=== PATIENT | female | born 1995 | race Two or more races ===

== ENCOUNTER 2019-02-03 19:02 | Inpatient (IN) | payer OTHER ==
[~2019-02-03] VITALS: Ht 156.5 cm; Wt 50.3 kg
== END 2019-02-05 11:36 | disposition home or self-care (01) | DRG 819 ==
LOC: OB/GYN 19:02 → SURG 19:02 → OB/GYN 19:40
PROVIDERS: ADMIT Specialist
PROC: 10T20ZZ Resection of Products of Conception, Ectopic, Open Approach (ICD-10-PCS; principal; 2019-02-03)
PROC: 0UB60ZZ Excision of Left Fallopian Tube, Open Approach (ICD-10-PCS; 2019-02-03)
DX: O00.102 Left tubal pregnancy without intrauterine pregnancy (principal)

== ENCOUNTER 2019-06-15 08:35 | Outpatient (CLI) | payer OTHER | END 2019-06-15 08:38 | disposition home or self-care (01) | LOC: RX STUDY 08:35 | DX: N97.1 Female infertility of tubal origin (principal) ==

== ENCOUNTER 2022-01-17 04:23 | Inpatient (IN) | payer OTHER ==
[~2022-01-17] VITALS: Ht 157.5 cm; Wt 2.3 kg
== END 2022-01-19 14:20 | disposition home or self-care (01) | DRG 788 ==
LOC: O/R 04:23 → LDR 04:23 → O/R 10:53 → OB/GYN 14:23
PROVIDERS: ADMIT Specialist; ATTEND Specialist
PROC: 4A1HXCZ Monitoring of Products of Conception, Cardiac Rate, External Approach (ICD-10-PCS; 2022-01-17)
PROC: 10D00Z1 Extraction of Products of Conception, Low, Open Approach (ICD-10-PCS; principal; 2022-01-17 10:00)
DX: O32.1XX0 Maternal care for breech presentation, not applicable or unspecified (principal); Z3A.37 37 weeks gestation of pregnancy; Z37.0 Single live birth; Z20.822 Contact with and (suspected) exposure to COVID-19